=== PATIENT | male | born 1965 | race African-American/Black ===

== ENCOUNTER 2017-03-21 17:49 | Emergency (ER) | payer OTHER ==
--- NOTE | ~2017-03-21 | EKG ---
PATIENT: MARTINE GARCIA UNIT #: [id number] Ventricular Rate: 75 BPM Atrial Rate: 75 BPM P-R Interval: 196 ms QRS Duration: 106 ms Q-T Interval: 378 ms QTC Calculation(Bezet): 422 ms P [place]: 45 degrees Calculated R [place]: 0 degrees Calculated T [place]: 8 degrees Diagnosis Line: Normal sinus rhythm Diagnosis Line: Minimal voltage criteria for LVH, may be normal Diagnosis Line: variant Diagnosis Line: Borderline ECG Diagnosis Line: When compared with ECG of 28-JAN-2014 05:58, Diagnosis Line: TX interval has decreased Diagnosis Line: T wave amplitude has decreased in Anterolateral Diagnosis Line: leads Diagnosis Line: Confirmed by MARY CARMEN DOMINGUEZ MD ([id number]) on Diagnosis Line: 03/22/2017 3:17:42 PM INTERPRETING MD: ANGELICA WOLFF
--- NOTE | ~2017-03-21 | CT4 ---
[facility] A Service of [facility] RADIOLOGY TEXT RESULTS PATIENT: MARTINE GARCIA LOCATION: [facility] : 61 UNIT #: [id number] AGE: [address]: Apple Christine MD SEX: M ORDER DR: [id number] [place], [place] [address] [id number] E MR#: [id number] Acc #: [id number] NAME: MARTINE GARCIA : 1965 SEX: M STUDY DATE/TIME: 03/21/2017 21:28 UNIT: JUAN ROOM: STUDY DESCRIPTION: CT Abd and Pelv Wo Cont Attending Physician: Apple Christine M.D. Ordering Physician: Irene Hernandez M.D. Primary Care Physician: Micheal Segovia M.D. MEDICAL IMAGING REPORT This report is preliminary unless electronic signature is present EXAM CT abdomen and pelvis without contrast INDICATION Bilateral flank pain and generalized abdominal pain for the past week. PROCEDURE Unenhanced CT of the abdomen and pelvis. COMPARISON 02/24/2015. FINDINGS This CT examination was performed with one or more of the following radiation dose reduction techniques: automatic exposure control, adjustment of mA and/or kV according to patient size, and iterative reconstruction. ABDOMEN WITHOUT CONTRAST: Included lung bases are clear. Coronary artery calcification. Liver, spleen, adrenal glands, pancreas, gallbladder have an unremarkable unenhanced appearance. Bowel loops are nondilated. Appendix is normal. Polycystic kidney disease with innumerable cysts in both kidneys. No radiodense urinary system calculus or hydronephrosis. PELVIS WITHOUT CONTRAST: No radiodense bladder calculus. Small fat-containing left inguinal hernia. No aggressive appearing bone lesion. IMPRESSION 1. No acute findings. [facility] A Service of [facility] RADIOLOGY TEXT RESULTS PATIENT: MARTINE GARCIA LOCATION: [facility] : 61 UNIT #: [id number] AGE: [address]: Apple Christine MD SEX: M ORDER DR: 2. Polycystic kidney disease. 3. No radiodense urinary system calculus or hydronephrosis. 4. Coronary artery calcification. Dictated by... Raymond Cordova M.D. THIS IS AN ELECTRONICALLY VERIFIED REPORT Raymond Cordova M.D. at 03/22/2017 9:54 PM JOSEPH/frantz TD: 03/22/2017 08:04 JOB #: [id number] MEDICAL IMAGING REPORT Page 1 of 1 COPY
--- NOTE | ~2017-03-21 | CR72 ---
[facility] A Service of [facility] RADIOLOGY TEXT RESULTS PATIENT: MARTINE GARCIA LOCATION: [facility] : 61 UNIT #: [id number] AGE: [address]: Apple Christine MD SEX: M ORDER DR: [id number] [facility] [address] [place], [place] [address] [id number] E MR#: [id number] Acc #: [id number] NAME: MARTINE GARCIA : 1965 SEX: M STUDY DATE/TIME: 03/21/2017 19:00 UNIT: [facility] ROOM: STUDY DESCRIPTION: CR Chest Single View Portable Attending Physician: Apple Christine M.D. Ordering Physician: Irene Hernandez M.D. Primary Care Physician: Micheal Segovia M.D. MEDICAL IMAGING REPORT This report is preliminary unless electronic signature is present EXAM Portable chest, 03/21/2017 INDICATION Chest pain and mild congestion for 1 week. COMPARISON 01/20/2016 FINDINGS A single AP portable view of the chest shows both lungs to be clear. The heart is normal in size. The mediastinal contour is normal. No significant bone abnormalities are seen. IMPRESSION Normal portable chest. Dictated by... Joce Montaño Jr., M.D. THIS IS AN ELECTRONICALLY VERIFIED REPORT Jcoe Montaño Jr., M.D. at 03/23/2017 7:35 AM SUDARSHAN/kristian TD: 03/22/2017 05:10 JOB #: [id number] MEDICAL IMAGING REPORT Page 1 of 1 COPY
[~2017-03-21 17:49] MED LIST: ACETAMINOPHEN PO; ACTOS PO; ALDACTONE25 MG PO; AMLODIPINE BESYL5 MG PO; APRESOLINE PO; ASPIRIN PO; AVALIDE 300-251 TAB PO; AVANDIA PO; BACITRACIN15 GM TP; BACTRIM DS TABL1 TA1 PO; CADUET 10 MG/401 TAB PO; CARVEDILOL12.5 MG PO; COREG PO; COREG12.5 MG PO; GLUCOPHAGE500 MG PO; GLUCOTROL XL10 MG PO; GLUCOVANCE 5/501 TA1 PO; HCTZ PO; HYDRALAZINE HCL50 MG PO; KAZANO 12.5-501 EACH PO; KEFLEX500 MG PO; KROGER PHARMACY; LANTUS100 U/ML; LEVEMIR FL100 UNIT/1 SQ; LEVEMIR SUBQ; LISINOPRIL PO; LISINOPRIL20 MG PO; LORTAB 10-5001 EACH PO; NORVASC PO; NORVASC10 MG PO; NOVOLOG100 UNITS/ SUBQ; SIMVASTATIN20 MG PO; ZESTORETIC 20/21 TAB PO; ZESTRIL40 MG PO; ZOCOR PO; ZOCOR20 MG PO
[2017-03-21 18:46] LABS: POC - CKMB <1.0 ng/mL (0.0-7.9); POC - TROPONIN <0.05 ng/mL (<=0.05)
[2017-03-21 18:52] LABS: BASOPHIL% 0.3 % (0-2.5); DIFF IND NO; EOSINOPHIL# 0.2 X10e3 (0-0.7); EOSINOPHIL% 2.4 % (0.0-7.0); HEMATOCRIT 41.4 % (38.0-50.0); HEMOGLOBIN 13.1 gm/dL (13.0-16.0); LYMPHOCYTE# 1.6 X10e3 (1.0-3.5); LYMPHOCYTE% 23.9 % (17.0-45.0); MEAN CELL VOLUME 83.5 FL (83-96); MEAN CORPUSCULAR HEMOGLOBIN 26.4 PG (28-34); MEAN CORPUSCULAR HGB CONC 31.6 g/dL (30-36); MEAN PLATELET VOLUME 8.3 FL (6.5-11.5); MONOCYTE# 0.7 X10e3 (0-1.0); MONOCYTE% 10.5 % (3.0-12.0); NEUTROPHIL# 4.3 X10e3 (1.5-7.1); NEUTROPHIL% 62.9 % (40-75); PLATELET COUNT 230 X10e3 (140-420); RED BLOOD COUNT 4.97 X10e (3.90-5.60); RED CELL DISTRIBUTION WIDTH 13.5 % (11.0-15.5); WHITE BLOOD COUNT 6.8 X10e3 (4.0-10.5)
[2017-03-21 19:03] LABS: URINE SOURCE CLEAN CATCH
[2017-03-21 19:07] LABS: URINE APPEARANCE CLEAR; URINE BILIRUBIN NEG (NEG); URINE BLOOD NEG (NEG); URINE COLOR YELLOW; URINE GLUCOSE >1000 MG/DL (NEG); URINE KETONE TRACE (NEG); URINE LEUKOCYTE ESTERASE NEG (NEG); URINE NITRATE NEG (NEG); URINE PROTEIN 1+ (NEG); URINE SPECIFIC GRAVITY 1.022 (1.003-1.035); URINE UROBILINOGEN 0.2 MG/DL (NEG)
[2017-03-21 19:09] LABS: URBCS1 AUWI 0-2 /[HPF] (0-2); URINE BACTERIA AUWI NEG (NEGATIVE); URINE SQUAMOUS EPITHELIAL CELL NONE SEEN /[HPF]; UWBCS1 AUWI 0-2 (0-5)
[2017-03-21 19:11] LABS: CULTURE INDICATED? NO
[2017-03-21 19:16] LABS: ALBUMIN SERUM 4.2 g/dL (3.5-5.0); BILIRUBIN, DIRECT 0.1 mg/dL (0.0-0.2); BILIRUBIN,INDIRECT 0.2 mg/dL (0.0-0.9); BILIRUBIN,TOTAL 0.3 mg/dL (0.2-2.0); BUN/CREATININE RATIO 12.85; CALCIUM SERUM 9.4 mg/dL (8.4-10.2); CREATININE SERUM 2.1 mg/dL (0.6-1.4); GLOM FILT RATE Estimated 40.4 mL/min (>60); POTASSIUM 4.5 mmol/L (3.5-5.1); PROTEIN TOTAL SERUM 7.9 g/dL (6.0-8.3)
[2017-03-21 20:10] LABS: POC - CKMB <1.0 ng/mL (0.0-7.9); POC - TROPONIN <0.05 ng/mL (<=0.05)
== END 2017-03-22 00:42 | disposition home or self-care (01) ==
LOC: CED 17:49
PROVIDERS: Emergency Medicine
DX: R10.9 Unspecified abdominal pain (principal); N17.9 Acute kidney failure, unspecified; Q61.3 Polycystic kidney, unspecified; E11.9 Type 2 diabetes mellitus without complications; I10 Essential (primary) hypertension; Z79.899 Other long term (current) drug therapy; Z79.4 Long term (current) use of insulin
CPT/HCPCS: 36415; 71010; 74176; 80048; 80076; 81003; 82150; 82553; 83690; 84484; 85025; 93005; 99284